=== PATIENT | female | born 1965 | race Two or more races ===

== ENCOUNTER 2018-11-15 08:57 | Emergency (ER) | payer OTHER ==
[~2018-11-15] VITALS: Ht 154.9 cm; Wt 95.5 kg
[2018-11-15] MEDS ORDERED: LEVE500T53 PO (09:05)
[2018-11-15] MEDS ORDERED: HYDR10TA31 PO (09:05)
[2018-11-15] MEDS ORDERED: CHL25 PO (09:05)
[2018-11-15] MEDS ORDERED: OXYB5 PO (09:05)
[2018-11-15] MEDS ORDERED: DiphenhydrAMINE HCL 25 MG CAPSULE PO ONE (12:30)
[2018-11-15] MEDS ORDERED: HYDR25TA84 PO (12:34)
[2018-11-15 13:04] VITALS: BP 188/105
== END 2018-11-15 13:34 | disposition home or self-care (01) ==
LOC: EMS 09:05
DX: L29.9 Pruritus, unspecified (principal); T50.2X5A Adverse effect of carbonic-anhydrase inhibitors, benzothiadiazides and other diuretics, initial encounter; I10 Essential (primary) hypertension; Z88.0 Allergy status to penicillin; Z79.899 Other long term (current) drug therapy; Y92.89 Other specified places as the place of occurrence of the external cause